=== PATIENT | male | born 1985 | race Caucasian/White ===

== ENCOUNTER 2016-12-06 21:29 | Emergency (ER) | payer OTHER ==
[2016-12-06] MEDS ORDERED: SUBOXONE 4 MG-1 EACH SL (22:43)
== END 2016-12-06 23:26 ==
LOC: EDMED 21:29
DX: S90.01XA Contusion of right ankle, initial encounter (principal); W22.8XXA Striking against or struck by other objects, initial encounter; Y93.H2 Activity, gardening and landscaping; Y92.69 Other specified industrial and construction area as the place of occurrence of the external cause; Y99.0 Civilian activity done for income or pay